=== PATIENT | female | born 1935 | race Caucasian/White ===

== ENCOUNTER 2020-04-01 10:54 | Outpatient (NON) | payer MEDICARE, SELFPAY ==
[2020-04-01 11:39] LABS: INR 2.3; Prothrombin Time 23.4 Seconds (9.64-11.0)
== END 2020-04-01 10:55 ==
LOC: CHSLAB 10:55
PROVIDERS: Visit Provider Internal Medicine
DX: Z79.01 Long term (current) use of anticoagulants (principal)
CPT/HCPCS: 36415; 85610

== ENCOUNTER 2020-04-29 10:01 | Outpatient (NON) | payer MEDICARE, SELFPAY ==
[2020-04-29 11:43] LABS: INR 2.6; Prothrombin Time 26.4 Seconds (9.64-11.0)
== END 2020-04-29 10:02 ==
LOC: CHSLAB 10:02
PROVIDERS: Visit Provider Internal Medicine
DX: Z79.01 Long term (current) use of anticoagulants (principal)
CPT/HCPCS: 36415; 85610

== ENCOUNTER 2020-05-27 11:25 | Outpatient (NON) | payer MEDICARE, SELFPAY ==
[2020-05-27 12:18] LABS: INR 2.2; Prothrombin Time 23.2 Seconds (9.50-12.10)
== END 2020-05-27 11:26 ==
LOC: CHSLAB 11:26
PROVIDERS: Visit Provider Internal Medicine
DX: Z79.01 Long term (current) use of anticoagulants (principal)
CPT/HCPCS: 36415; 85610

== ENCOUNTER 2020-06-06 12:09 | Outpatient (NON) | payer MEDICARE, SELFPAY | END 2020-06-06 12:10 | LOC: CHSLAB 12:10 | PROVIDERS: Visit Provider Internal Medicine | DX: Z01.83 Encounter for blood typing (principal) | CPT/HCPCS: 36415; 86900; 86901 ==

== ENCOUNTER 2020-06-27 11:32 | Outpatient (NON) | payer MEDICARE, SELFPAY ==
[2020-06-27 12:00] LABS: INR 2.2; Prothrombin Time 23.3 Seconds (9.50-12.10)
== END 2020-06-27 11:33 ==
LOC: CHSLAB 11:32
PROVIDERS: Visit Provider Internal Medicine
DX: Z79.01 Long term (current) use of anticoagulants (principal)
CPT/HCPCS: 36415; 85610

== ENCOUNTER 2020-07-29 10:51 | Outpatient (NON) | payer MEDICARE, SELFPAY ==
[2020-07-29 11:26] LABS: INR 2.5; Prothrombin Time 25.5 Seconds (9.50-12.10)
== END 2020-07-29 10:52 ==
LOC: CHSLAB 10:54
PROVIDERS: Visit Provider Internal Medicine
DX: Z79.01 Long term (current) use of anticoagulants (principal)
CPT/HCPCS: 36415; 85610

== ENCOUNTER 2020-08-26 10:42 | Outpatient (NON) | payer MEDICARE, SELFPAY ==
[2020-08-26 11:48] LABS: Basophils Absolute Auto 0.04 K/mm3 (0.00-0.10); Basophils Percent Auto 0.8 % (0.0-1.0); Eosinophils Absolute Auto 0.12 K/mm3 (0.02-0.50); Eosinophils Percent Auto 2.5 % (1.0-6.0); Hematocrit 37.5 % (35.0-42.0); Hemoglobin 11.5 g/dL (11.7-13.8); Immature Granulocyte Absolute 0.01 K/mm3 (0.00-0.00); Immature Granulocyte Percent A 0.2 % (0.0-0.0); Lymphocytes Absolute Auto 0.92 K/mm3 (1.10-4.50); Mean Corpuscular HGB Conc 30.7 g/dL (32.0-36.0); Mean Corpuscular Hemoglobin 27.4 pg (27.0-31.0); Mean Corpuscular Volume 89.3 fL (78.0-102.0); Mean Platelet Volume 10.7 fl (9.2-11.8); Monocytes Absolute Auto 0.42 K/mm3 (0.10-0.90); Monocytes Percent Auto 8.7 % (2.0-11.0); Neutrophils Absolute Auto 3.3 K/mm3 (1.7-7.2); Neutrophils Percent Auto 68.8 % (50.0-70.0); Platelet Count Result 226 K/mm3 (150-420); Red Cell Distribution Width 15.6 % (11.6-14.4); White Blood Count 4.9 K/mm3 (4.8-10.8)
[2020-08-26 11:55] LABS: INR 2.2; Prothrombin Time 22.9 Seconds (9.50-12.10)
[2020-08-26 12:06] LABS: Alanine Aminotransferase 36 U/L (14-59); Albumin Level 3.8 g/dL (3.4-5.0); Alkaline Phosphatase 123 U/L (46-116); Anion Gap 10 mmol/L (8-16); Aspartate Amino Transferase 35 U/L (15-37); Bilirubin,Total 0.8 mg/dL (0.00-1.00); Blood Urea Nitrogen 24 mg/dL (7-18); Calcium 9.2 mg/dL (8.5-10.1); Carbon Dioxide 29 mmol/L (21-32); Chloride 101 mmol/L (98-108); Cholesterol 184 mg/dL (0-200); Creatine Kinase 58 U/L (26-192); Estimated Glomerular Filt Rate 45; Ferritin 51 ng/mL (8-252); Glucose 136 mg/dL (70-99); HDL Direct 46 mg/dL (40-60); Iron 68 ug/dL (50-170); LDL Cholesterol Calculated 117 mg/dL (<130); Osmolality Calculated 296 mOsm/kg (285-295); Percent Iron Saturation 15 % (12-57); Potassium 3.9 mmol/L (3.5-5.1); Sodium 140 mmol/L (136-145); Total Protein 6.8 g/dL (6.4-8.2); Triglycerides 103 mg/dL (0-150)
[2020-08-26 12:11] LABS: BNP 286 pg/mL (0-100)
[2020-08-26 12:12] LABS: Hemoglobin A1C 6.5 % (<5.7)
[2020-08-29 11:58] LABS: Vitamin D 25 Hydroxy 40 ng/mL (30-100)
== END 2020-08-26 10:43 ==
LOC: CHSLAB 10:44
PROVIDERS: Visit Provider Internal Medicine
DX: R73.01 Impaired fasting glucose (principal); E78.5 Hyperlipidemia, unspecified; Z79.01 Long term (current) use of anticoagulants; I50.22 Chronic systolic (congestive) heart failure; M81.0 Age-related osteoporosis without current pathological fracture; D64.9 Anemia, unspecified
CPT/HCPCS: 36415; 80053; 80061; 82043; 82306; 82550; 82728; 83036; 83540; 83550; 83880; 85025; 85610

== ENCOUNTER 2020-09-23 09:51 | Outpatient (NON) | payer MEDICARE, SELFPAY ==
[2020-09-23 10:35] LABS: INR 2.4; Prothrombin Time 24.1 Seconds (9.50-12.10)
== END 2020-09-23 09:52 ==
LOC: CHSLAB 09:53
PROVIDERS: Visit Provider Internal Medicine
DX: Z79.01 Long term (current) use of anticoagulants (principal)
CPT/HCPCS: 36415; 85610

== ENCOUNTER 2020-10-21 10:05 | Outpatient (NON) | payer MEDICARE, SELFPAY ==
[2020-10-21 10:38] LABS: INR 2.1; Prothrombin Time 21.4 Seconds (9.50-12.10)
== END 2020-10-21 10:06 | disposition home or self-care (01) ==
LOC: CHSLAB 10:08
PROVIDERS: PCP Internal Medicine; Visit Provider Internal Medicine
DX: Z79.01 Long term (current) use of anticoagulants (principal)
CPT/HCPCS: 36415; 85610

== ENCOUNTER 2020-11-21 13:54 | Outpatient (NON) | payer MEDICARE, SELFPAY ==
[2020-11-21 14:21] LABS: INR 1.8; Prothrombin Time 18.5 Seconds (9.50-12.10)
== END 2020-11-21 13:55 | disposition home or self-care (01) ==
LOC: CHSLAB 13:55
PROVIDERS: PCP Internal Medicine; Visit Provider Internal Medicine
DX: Z79.01 Long term (current) use of anticoagulants (principal)
CPT/HCPCS: 36415; 85610

== ENCOUNTER 2020-12-18 07:34 | Emergency (ER) | payer MEDICARE, SELFPAY ==
--- NOTE | ~2020-12-18 | CT_ITS ---
EXAMINATION: CT brain wo con EXAM DATE: 12/18/2020 08:20 INDICATION: Posterior head injury, fall. Headache. TECHNIQUE: Spiral CT of the head was performed without contrast. Axial, coronal and sagittal images were reviewed. The dose-length product (DLP) for this examination was 681.00 mGy-cm. The exposure w as tailored according to patient size, and iterative reconstruction (ASIR) was used as additional dos e reduction technique. Comparison is made to prior examination from 01/31/2018. FINDINGS: There is no acute intraparenchymal hemorrhage. No evidence of intraparenchymal brain mass lesion. No evidence of acute infarction. Please note that initial head CT has limited sensitivity f or small or acute infarctions. There is mild periventricular and subcortical hypodensity, nonspecific but probably related to small vessel ischemic disease. There is moderate prominence of the sulci a nd ventricles related to cerebral atrophy. There is intracranial carotid arteriosclerosis. There a re no extra-axial collections. There is no mass effect or midline shift. Patient has had bilateral ocular lens surgery. There is sizable posterior scalp hematoma. The visualized sinuses and mastoid a ir cells are well aerated. IMPRESSION: 1. No acute intracranial findings. 2. Chronic age related findings. 3. Posterior scalp hematoma. Reviewed, dictated and finalized at location A.
--- NOTE | ~2020-12-18 | XR_ITS ---
EXAMINATION: XR shoulder RT min 2V DATE: 12/18/2020 08:56 INDICATION: Right shoulder injury and pain. TECHNIQUE: 4 views of right shoulder were obtained. COMPARISON: None. FINDINGS: Bone alignment is normal. No fracture. There is severe osteoarthritis of acromioclavicular joint. There is severe osteoarthritis of glenohumeral joint with loose bodies. IMPRESSION: 1. Severe polyarticular osteoarthritis. 2. Loose bodies in glenohumeral joint. Reviewed, dictated and finalized at location A.
[2020-12-18 07:34] VITALS: BP 145/58; PULSE 72; RESP 20; TEMP 36.7; O2SAT 92
--- NOTE | 2020-12-18 07:55 | ED.FALL ---
HPI - Fall General Chief Complaint: Fall Stated Complaint: FELL AND HIT HEAD Time Seen by Provider: 12/18/20 07:45 Source: patient Mode of arrival: ambulatory (with walker) Limitations: no limitations History of Present Illness HPI Narrative: 85-year-old woman from [place] brought to emergency department today by family stating she tripped over the threshold of her apartment while going out to water her plants. The family also states she fell before she reached the threshold and are concerned she may have passed out. She fell backwards and struck the back of her head where she has swelling. She denies other pain or complaints. 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 She denies lightheadedness, dizziness, chest pain or weakness before the fall and recent falls. Her [id number] states she has been sleeping in her recliner lately since she feels short of breath when she lays flat. complaint: fall Onset (ago): hour(s) (1) Fall from: standing Fall witnessed: no Place fall occurred: jail[facility] Loss of consciousness: none Prolonged down time: no Symptoms prior to fall: none Context: tripped/slipped Location of injury: head Severity: mild Associated symptoms (after fall): headache Related Data Home Medications Medication Instructions Recorded Confirmed Ca carb-D3-mag [id number] 1 tablet PO DAILY 12/18/20 12/18/20 [Caltrate + D3 Plus Minerals] fluticasone propionate 2 spray INTRANASAL HS 12/18/20 12/18/20 furosemide 40 mg PO BID 12/18/20 12/18/20 metformin 500 mg PO BID 12/18/20 12/18/20 metoprolol tartrate 75 mg PO BID 12/18/20 12/18/20 montelukast 10 mg PO DAILY 12/18/20 12/18/20 omeprazole 40 mg PO DAILY 12/18/20 12/18/20 potassium chloride 20 meq PO DAILY 12/18/20 12/18/20 pravastatin 40 mg PO DAILY 12/18/20 12/18/20 spironolactone [Aldactone] 50 mg PO DAILY 12/18/20 12/18/20 tramadol 50 mg PO Q6H PRN 12/18/20 12/18/20 warfarin 4 mg PO DAILY 07/07/21 07/07/21 Allergies Allergy/AdvReac Type Severity Reaction Status Date / Time amoxicillin [From Augmentin] Allergy Unknown Verified 12/18/20 07:51 clavulanic acid Allergy Unknown Verified 12/18/20 07:51 [From Augmentin] Review of Systems Review of Systems: All systems reviewed & are unremarkable except as noted in HPI and below Eyes: Eyes: Denies change in vision and Denies photophobia Cardiovascular: Cardiovascular: Denies chest pain and Denies radiating jaw, neck or arm pain Respiratory: Respiratory: Denies cough and Denies dyspnea Gastrointestinal: Gastrointestinal: Denies abdominal pain, Denies nausea and Denies vomiting Genitourinary: Genitourinary: Denies nocturia and Denies dysuria Musculoskeletal: Musculoskeletal: Reports back pain, Denies arthralgias and Denies joint swelling Integumentary/Breasts: Skin/Breast: Denies pruritus, Denies erythema and Denies rash Neurologic: Denies vertigo, Denies dizziness and Denies syncope Hematologic/Lymphatic: Hematologic/Lymphatic: Denies easy bleeding and Denies easy bruising Allergic/Immunologic: Allergic/Immunologic: Denies lip swelling and Denies throat swelling [facility] Past Medical History Medical History (Updated 12/18/20 @ 10:31 by Kingsley Parmar MD) Afib CHF (congestive heart failure) HLD (hyperlipidemia) HTN (hypertension) T2DM (type 2 diabetes mellitus) Surgical History Surgical History (Updated 12/18/20 @ 08:11 by Kingsley Parmar MD) S/P AVR (aortic valve replacement) Social History Social History (Updated 12/18/20 @ 08:12 by Kingsley Parmar MD) Smoking status: Never smoker Alcohol intake: never Living arrangements: assisted living Exam Const: General: healthy appearing, no acute distress and alert Other: oriented x 2 HENMT: Ears: external ears normal, TM's normal bilaterally and EAC's normal General nose exam: Normal nares present Face and sinus: normal facial exam Mouth: Yes moist mucous membranes Throat: posterior
--- NOTE | 2020-12-18 08:05 | ECG_ITS ---
Measurements Intervals [place] Rate: 67 P: TN: 0 QRS: -71 QRSD: 156 T: 127 QT: 457 QTc: 484 Interpretive Statements ATRIAL FIBRILLATION VENTRICULAR TRIGEMINY RIGHT BUNDLE BRANCH BLOCK LEFT ANTERIOR FASCICULAR BLOCK BASELINE ARTIFACT- I, II, AVR, AVL, AVF, V4-V6 ABNORMAL ECG Electronically Signed On 12-18-2020 11:35:53 CDT by David Fine D.O.
[2020-12-18 08:46] LABS: Basophils Absolute Auto 0.02 K/mm3 (0.00-0.10); Basophils Percent Auto 0.3 % (0.0-1.0); Eosinophils Absolute Auto 0.06 K/mm3 (0.02-0.50); Eosinophils Percent Auto 0.9 % (1.0-6.0); Hematocrit 35.4 % (35.0-42.0); Hemoglobin 11.3 g/dL (11.7-13.8); Immature Granulocyte Absolute 0.03 K/mm3 (0.00-0.00); Immature Granulocyte Percent A 0.4 % (0.0-0.0); Lymphocytes Absolute Auto 0.66 K/mm3 (1.10-4.50); Lymphocytes Percent Auto 9.7 % (18.0-42.0); Mean Corpuscular HGB Conc 31.9 g/dL (32.0-36.0); Mean Corpuscular Hemoglobin 27.9 pg (27.0-31.0); Mean Corpuscular Volume 87.4 fL (78.0-102.0); Mean Platelet Volume 9.3 fl (9.2-11.8); Monocytes Absolute Auto 0.51 K/mm3 (0.10-0.90); Monocytes Percent Auto 7.5 % (2.0-11.0); Neutrophils Absolute Auto 5.5 K/mm3 (1.7-7.2); Neutrophils Percent Auto 81.2 % (50.0-70.0); Platelet Count Result 216 K/mm3 (150-420); Red Blood Count 4.05 M/mm3 (4.20-5.40); Red Cell Distribution Width 16.3 % (11.6-14.4); White Blood Count 6.8 K/mm3 (4.8-10.8)
[2020-12-18 08:53] LABS: Add Urine Microscopic? NO; Appearance Urine Clear (Clear); Bilirubin Urine Negative (Negative); Blood Urine Negative (Negative); Color Urine Light Yellow (Yellow); Glucose Urine UA Negative (Negative); Ketones Urine Negative (Negative); Leukocyte Esterase Ur Negative (Negative); Nitrate Urine Negative (Negative); Protein Urine Negative (Negative); Urobilinogen Urine 0.2 mg/dL (0.2-1.0)
[2020-12-18 08:56] LABS: INR 2.4; Prothrombin Time 24.3 Seconds (9.50-12.10)
[2020-12-18 08:58] VITALS: BP 128/70; PULSE 70
[2020-12-18 09:02] VITALS: BP 126/52; PULSE 66
[2020-12-18 09:04] VITALS: BP 139/112; PULSE 75
[2020-12-18 09:07] LABS: Anion Gap 10 mmol/L (8-16); Blood Urea Nitrogen 24 mg/dL (7-18); Calcium 9.2 mg/dL (8.5-10.1); Carbon Dioxide 29 mmol/L (21-32); Chloride 103 mmol/L (98-108); Estimated CRCL calculation 43 ml/min; Estimated Glomerular Filt Rate 46; Glucose 155 mg/dL (70-99); NT Pro B Type Natriuretic Pept 2380 pg/mL (0-450); Osmolality Calculated 301 mOsm/kg (285-295); Sodium 142 mmol/L (136-145)
[2020-12-18 10:40] VITALS: BP 125/94; PULSE 68; RESP 20; O2SAT 98
== END 2020-12-18 10:40 ==
PROVIDERS: Emergency Provider Emergency Medicine; PCP Internal Medicine
DX: S09.90XA Unspecified injury of head, initial encounter (principal); Z79.01 Long term (current) use of anticoagulants; W01.0XXA Fall on same level from slipping, tripping and stumbling without subsequent striking against object, initial encounter; I48.91 Unspecified atrial fibrillation; I50.9 Heart failure, unspecified; I10 Essential (primary) hypertension; E11.9 Type 2 diabetes mellitus without complications
CPT/HCPCS: 36415; 70450; 73030; 80048; 81003; 83880; 85025; 85610; 93005; 99283; 99284

== ENCOUNTER 2021-01-21 11:51 | Outpatient (NON) | payer MEDICARE, SELFPAY ==
[2021-01-21 12:32] LABS: INR 1.8; Prothrombin Time 18.2 Seconds (9.50-12.10)
== END 2021-01-21 11:52 | disposition home or self-care (01) ==
PROVIDERS: Visit Provider Internal Medicine
DX: Z79.01 Long term (current) use of anticoagulants (principal)
CPT/HCPCS: 36415; 85610

== ENCOUNTER 2021-01-30 15:31 | Outpatient (NON) | payer MEDICARE, SELFPAY ==
[2021-01-30 16:12] LABS: INR 1.9; Prothrombin Time 19.7 Seconds (9.50-12.10)
== END 2021-01-30 15:32 | disposition home or self-care (01) ==
LOC: CHSLAB 15:33
PROVIDERS: Visit Provider Internal Medicine
DX: Z79.01 Long term (current) use of anticoagulants (principal)
CPT/HCPCS: 85610

== ENCOUNTER 2021-02-06 10:28 | Outpatient (NON) | payer MEDICARE, SELFPAY ==
[2021-02-06 11:11] LABS: Prothrombin Time 20.4 Seconds (9.50-12.10)
== END 2021-02-06 10:29 | disposition home or self-care (01) ==
LOC: CHSLAB 10:29
PROVIDERS: Visit Provider Internal Medicine
DX: Z79.01 Long term (current) use of anticoagulants (principal)
CPT/HCPCS: 85610

== ENCOUNTER 2021-02-21 10:26 | Outpatient (NON) | payer MEDICARE, SELFPAY ==
[2021-02-21 10:57] LABS: Prothrombin Time 20.9 Seconds (9.50-12.10)
== END 2021-02-21 10:27 | disposition home or self-care (01) ==
LOC: CHSLAB 10:28
PROVIDERS: Visit Provider Internal Medicine
DX: Z79.01 Long term (current) use of anticoagulants (principal)
CPT/HCPCS: 36415; 85610

== ENCOUNTER 2021-03-24 10:07 | Outpatient (NON) | payer MEDICARE, SELFPAY ==
[2021-03-24 10:59] LABS: INR 1.7; Prothrombin Time 17.2 Seconds (9.50-12.10)
== END 2021-03-24 10:08 | disposition home or self-care (01) ==
LOC: CHSLAB 10:09
PROVIDERS: Visit Provider Internal Medicine
DX: Z79.01 Long term (current) use of anticoagulants (principal)
CPT/HCPCS: 36415; 85610

== ENCOUNTER 2021-04-02 14:24 | Outpatient (NON) | payer MEDICARE, SELFPAY ==
[2021-04-02 15:37] LABS: INR 3.4; Prothrombin Time 33.8 Seconds (9.50-12.10)
== END 2021-04-02 14:25 | disposition home or self-care (01) ==
LOC: CHSLAB 14:26
PROVIDERS: Visit Provider Internal Medicine
DX: Z79.01 Long term (current) use of anticoagulants (principal)
CPT/HCPCS: 36415; 85610

== ENCOUNTER 2021-04-16 09:42 | Outpatient (NON) | payer MEDICARE, SELFPAY ==
[2021-04-16 10:30] LABS: Prothrombin Time 50.1 Seconds (9.50-12.10)
[2021-04-16 10:33] LABS: INR 5.1
== END 2021-04-16 09:43 | disposition home or self-care (01) ==
LOC: CHSLAB 09:46
PROVIDERS: Visit Provider Internal Medicine
DX: Z79.01 Long term (current) use of anticoagulants (principal)
CPT/HCPCS: 85610

== ENCOUNTER 2021-04-23 13:54 | Outpatient (NON) | payer MEDICARE, SELFPAY ==
[2021-04-23 14:23] LABS: Prothrombin Time 20.4 Seconds (9.50-12.10)
== END 2021-04-23 13:55 | disposition home or self-care (01) ==
LOC: CHSLAB 13:58
PROVIDERS: Visit Provider Internal Medicine
DX: Z79.01 Long term (current) use of anticoagulants (principal)
CPT/HCPCS: 36415; 85610

== ENCOUNTER 2021-05-27 10:17 | Outpatient (NON) | payer MEDICARE, SELFPAY ==
[2021-05-27 11:40] LABS: INR 2.7; Prothrombin Time 27.8 Seconds (9.50-12.10)
== END 2021-05-27 10:18 | disposition home or self-care (01) ==
LOC: CHSLAB 10:19
PROVIDERS: Visit Provider Internal Medicine
DX: Z79.01 Long term (current) use of anticoagulants (principal)
CPT/HCPCS: 85610

== ENCOUNTER 2021-06-25 10:35 | Outpatient (NON) | payer MEDICARE, SELFPAY ==
[2021-06-25 11:08] LABS: INR 2.8; Prothrombin Time 28.2 Seconds (9.50-12.10)
== END 2021-06-25 10:36 | disposition home or self-care (01) ==
LOC: CHSLAB 10:37
PROVIDERS: Visit Provider Internal Medicine
DX: Z79.01 Long term (current) use of anticoagulants (principal)
CPT/HCPCS: 36415; 85610

== ENCOUNTER 2021-07-22 12:39 | Outpatient (NON) | payer MEDICARE, SELFPAY ==
[2021-07-22 13:26] LABS: INR 1.8; Prothrombin Time 18.5 Seconds (9.50-12.10)
== END 2021-07-22 12:40 | disposition home or self-care (01) ==
LOC: CHSLAB 12:42
PROVIDERS: Visit Provider Internal Medicine
DX: Z79.01 Long term (current) use of anticoagulants (principal)
CPT/HCPCS: 85610

== ENCOUNTER 2021-07-29 14:15 | Outpatient (NON) | payer MEDICARE, SELFPAY ==
[2021-07-29 14:39] LABS: INR 2.1; Prothrombin Time 21.9 Seconds (9.50-12.10)
== END 2021-07-29 14:16 | disposition home or self-care (01) ==
LOC: CHSLAB 14:17
PROVIDERS: Visit Provider Internal Medicine
DX: Z79.01 Long term (current) use of anticoagulants (principal)
CPT/HCPCS: 36415; 85610

== ENCOUNTER 2021-08-26 09:51 | Outpatient (NON) | payer MEDICARE, SELFPAY ==
[2021-08-26 10:56] LABS: Prothrombin Time 40.4 Seconds (9.50-12.10)
== END 2021-08-26 09:52 | disposition home or self-care (01) ==
LOC: CHSLAB 09:52
PROVIDERS: Visit Provider Internal Medicine
DX: Z79.01 Long term (current) use of anticoagulants (principal)
CPT/HCPCS: 85610

== ENCOUNTER 2021-09-01 14:18 | Outpatient (NON) | payer MEDICARE, SELFPAY ==
[2021-09-01 15:00] LABS: INR 2.9; Prothrombin Time 29.8 Seconds (9.50-12.10)
== END 2021-09-01 14:19 | disposition home or self-care (01) ==
LOC: CHSLAB 14:19
PROVIDERS: PCP Internal Medicine; Visit Provider Internal Medicine
DX: Z79.01 Long term (current) use of anticoagulants (principal)
CPT/HCPCS: 36415; 85610

== ENCOUNTER 2021-09-04 10:07 | Outpatient (NON) | payer MEDICARE, SELFPAY ==
[2021-09-04 10:31] LABS: Basophils Absolute Auto 0.03 K/mm3 (0.00-0.10); Basophils Percent Auto 0.5 % (0.0-1.0); Eosinophils Absolute Auto 0.19 K/mm3 (0.02-0.50); Eosinophils Percent Auto 3.3 % (1.0-6.0); Hematocrit 35.7 % (35.0-42.0); Hemoglobin 11.6 g/dL (11.7-13.8); Immature Granulocyte Absolute 0.02 K/mm3 (0.00-0.00); Immature Granulocyte Percent A 0.3 % (0.0-0.0); Lymphocytes Absolute Auto 1.01 K/mm3 (1.10-4.50); Lymphocytes Percent Auto 17.7 % (18.0-42.0); Mean Corpuscular HGB Conc 32.5 g/dL (32.0-36.0); Mean Corpuscular Hemoglobin 28.6 pg (27.0-31.0); Mean Corpuscular Volume 88.1 fL (78.0-102.0); Mean Platelet Volume 10.3 fl (9.2-11.8); Monocytes Absolute Auto 0.52 K/mm3 (0.10-0.90); Monocytes Percent Auto 9.1 % (2.0-11.0); Neutrophils Percent Auto 69.1 % (50.0-70.0); Platelet Count Result 246 K/mm3 (150-420); Red Blood Count 4.05 M/mm3 (4.20-5.40); Red Cell Distribution Width 14.6 % (11.6-14.4); White Blood Count 5.7 K/mm3 (4.8-10.8)
[2021-09-04 10:40] LABS: Hemoglobin A1C 7.2 % (<5.7)
[2021-09-04 10:47] LABS: Alanine Aminotransferase 34 U/L (14-59); Alkaline Phosphatase 79 U/L (46-116); Anion Gap 12 mmol/L (8-16); Aspartate Amino Transferase 33 U/L (15-37); Bilirubin,Total 1.1 mg/dL (0.00-1.00); Blood Urea Nitrogen 12 mg/dL (7-18); Calcium 9.4 mg/dL (8.5-10.1); Carbon Dioxide 25 mmol/L (21-32); Chloride 103 mmol/L (98-108); Cholesterol 198 mg/dL (0-200); Creatine Kinase 244 U/L (26-192); Estimated Glomerular Filt Rate > 60; Glucose 120 mg/dL (70-99); HDL Direct 38 mg/dL (40-60); LDL Cholesterol Calculated 135 mg/dL (<130); Osmolality Calculated 290 mOsm/kg (285-295); Potassium 4.8 mmol/L (3.5-5.1); Sodium 140 mmol/L (136-145); Total Protein 7.2 g/dL (6.4-8.2); Triglycerides 123 mg/dL (0-150)
[2021-09-04 12:33] LABS: NT Pro B Type Natriuretic Pept 96 pg/mL (0-450)
[2021-09-04 14:07] LABS: Add Urine Microscopic? YES; Appearance Urine Clear (Clear); Bilirubin Urine Negative (Negative); Blood Urine Negative (Negative); Color Urine Light Yellow (Yellow); Glucose Urine UA Negative (Negative); Ketones Urine Negative (Negative); Leukocyte Esterase Ur Negative LEU/UL (Negative); Nitrate Urine Negative (Negative); Protein Urine Trace (Negative); Urobilinogen Urine 0.2 mg/dL (0.2-1.0)
[2021-09-04 14:13] LABS: Creatinine Urine 64.66 mg/dL (40-278); MALB Creatinine Ratio 90.6 mg/g (0-30); Microalbumin Urine Random 58.6 mg/L; RBC Urine 0-2 /hpf (0-2); WBC Urine 0-3 /hpf (0-3)
[2021-09-04 14:14] LABS: Bacteria Urine None seen /hpf; Squamous Epithelial Cell Urine Few /hpf (Few)
[2021-09-06 19:06] LABS: Vitamin D 25 Hydroxy 38 ng/mL (30-100)
== END 2021-09-04 10:08 | disposition home or self-care (01) ==
LOC: CHSLAB 10:09
PROVIDERS: Visit Provider Internal Medicine
DX: E78.5 Hyperlipidemia, unspecified (principal); I50.22 Chronic systolic (congestive) heart failure; M81.0 Age-related osteoporosis without current pathological fracture; E11.9 Type 2 diabetes mellitus without complications; Z79.01 Long term (current) use of anticoagulants
CPT/HCPCS: 36415; 80053; 80061; 81001; 82043; 82306; 82550; 83036; 83880; 85025

== ENCOUNTER 2021-11-03 13:28 | Outpatient (NON) | payer MEDICARE, SELFPAY ==
[2021-11-03 14:05] LABS: INR 1.1; Prothrombin Time 11.6 Seconds (9.50-12.10)
== END 2021-11-03 13:29 | disposition home or self-care (01) ==
LOC: CHSLAB 13:32
PROVIDERS: Visit Provider Internal Medicine
DX: Z79.01 Long term (current) use of anticoagulants (principal)
CPT/HCPCS: 85610

== ENCOUNTER 2021-12-01 09:27 | Outpatient (NON) | payer OTHER, MEDICARE, SELFPAY ==
[2021-12-01 09:52] LABS: INR 1.1; Prothrombin Time 12.1 Seconds (9.50-12.10)
== END 2021-12-01 09:28 | disposition home or self-care (01) ==
LOC: CHSLAB 09:29
PROVIDERS: PCP Internal Medicine; Visit Provider Internal Medicine
DX: Z79.01 Long term (current) use of anticoagulants (principal)
CPT/HCPCS: 36415; 85610